=== PATIENT | male | born 1950 | race Caucasian/White ===

== ENCOUNTER → 2017-07-20 | Outpatient (CLI) | payer OTHER, MEDICARE | LOC: CIMAGING 10:24 | PROVIDERS: ATTEND Internal Medicine | DX: K82.4 Cholesterolosis of gallbladder (principal) | CPT/HCPCS: 76705-PO ==

== ENCOUNTER → 2018-02-07 | Outpatient (CLI) | payer OTHER, MEDICARE | LOC: CIMAGING 07:08 | PROVIDERS: ATTEND Surgery | DX: K82.4 Cholesterolosis of gallbladder (principal); K83.8 Other specified diseases of biliary tract | CPT/HCPCS: 76705-PO ==

== ENCOUNTER → 2018-12-08 | Outpatient (CLI) | payer OTHER, MEDICARE | LOC: FIMAGING 08:57 ==

== ENCOUNTER → 2019-03-29 | Outpatient (CLI) | payer OTHER, MEDICARE | LOC: CIMAGING 14:24 ==